=== PATIENT | female | born 1990 | race Caucasian/White ===

== ENCOUNTER → 2022-02-20 | Outpatient (CLI) | payer BC ==
[~2022-02-20] MED LIST: COLA100C5 PO; IBUP-1114 PO; IRON27TA2 PO; MAPA500T2 PO; PRENTAB9 PO
[2022-02-20 16:10] LABS: HEMATOCRIT 37.1 % (36.0-47.0); HEMOGLOBIN 13.1 g/dl (12.0-15.5); MEAN CORPUSCULAR HEMOGLOBIN 30.5 pg (27.0-33.0); MEAN CORPUSCULAR HGB CONC 35.3 g/dl (32.0-36.5); MEAN CORPUSCULAR VOLUME 86.5 fl (80.0-96.0); PLATELET COUNT, AUTOMATED 254 10^3/uL (150-450); RED BLOOD COUNT 4.29 10^6/uL (4.00-5.40); WHITE BLOOD COUNT 6.9 10^3/uL (4.0-10.0)
[2022-02-20 16:41] LABS: CREATININE,RANDOM URINE 76.8 MG/DL; TOTAL PROTEIN,RANDOM URINE 12.3 MG/DL (0.0-12.0)
[2022-02-20 16:42] LABS: ALT/SGPT 21 U/L (12-78); BILIRUBIN,TOTAL 0.4 MG/DL (0.2-1.0); CREATININE FOR GFR 0.74 MG/DL (0.55-1.30); GLOMERULAR FILTRATION RATE > 60.0 (>60); LDH LACTATE DEHYDROGENASE 178 U/L (84-246); URIC ACID 3.6 MG/DL (2.6-6.0)
[2022-02-20 17:34] LABS: GC DNA AMPLIFICATION NEGATIVE (NEGATIVE)
[2022-02-20 18:26] LABS: HEPATITIS C VIRUS ABY INDEX < 0.0 INDEX (<0.8)
[2022-02-20 18:27] LABS: HIV 1&2 SCREEN CENTAUR NEGATIVE (NEGATIVE)
== END ==
LOC: M PLALAB 13:34
PROVIDERS: ATTEND Advanced Practice Midwife
DX: Z36.89 Encounter for other specified antenatal screening (principal)

== ENCOUNTER → 2022-04-08 | Outpatient (CLI) | payer BC | LOC: M WHC 14:26 | PROVIDERS: ATTEND Specialist | DX: Z34.82 Encounter for supervision of other normal pregnancy, second trimester (principal); Z3A.18 18 weeks gestation of pregnancy ==

== ENCOUNTER → 2022-04-22 | Outpatient (REF) | payer BC | LOC: M SFHCWAGY 17:13 | PROVIDERS: ATTEND Obstetrics & Gynecology | DX: Z34.92 Encounter for supervision of normal pregnancy, unspecified, second trimester (principal) ==

== ENCOUNTER → 2022-06-29 | Outpatient (CLI) | payer BC ==
[2022-06-29 15:55] LABS: HEMATOCRIT 30.7 % (36.0-47.0); HEMOGLOBIN 10.6 g/dl (12.0-15.5); MEAN CORPUSCULAR HEMOGLOBIN 31.8 pg (27.0-33.0); MEAN CORPUSCULAR HGB CONC 34.5 g/dl (32.0-36.5); MEAN CORPUSCULAR VOLUME 92.2 fl (80.0-96.0); PLATELET COUNT, AUTOMATED 238 10^3/uL (150-450); RED BLOOD COUNT 3.33 10^6/uL (4.00-5.40); WHITE BLOOD COUNT 8.3 10^3/uL (4.0-10.0)
[2022-06-29 17:41] LABS: GC DNA AMPLIFICATION NEGATIVE (NEGATIVE)
== END ==
LOC: M PLALAB 11:25
PROVIDERS: ATTEND Specialist
DX: Z34.82 Encounter for supervision of other normal pregnancy, second trimester (principal)

== ENCOUNTER → 2022-06-29 | Outpatient (CLI) | payer BC | LOC: M WHC 10:36 | PROVIDERS: ATTEND Obstetrics & Gynecology | DX: Z36.2 Encounter for other antenatal screening follow-up (principal); Z3A.30 30 weeks gestation of pregnancy ==

== ENCOUNTER → 2022-07-24 | Outpatient (CLI) | payer BC ==
[2022-07-24 14:01] LABS: HEMATOCRIT 32.8 % (36.0-47.0); HEMOGLOBIN 11.4 g/dl (12.0-15.5); MEAN CORPUSCULAR HEMOGLOBIN 31.6 pg (27.0-33.0); MEAN CORPUSCULAR HGB CONC 34.8 g/dl (32.0-36.5); MEAN CORPUSCULAR VOLUME 90.9 fl (80.0-96.0); PLATELET COUNT, AUTOMATED 239 10^3/uL (150-450); RED BLOOD COUNT 3.61 10^6/uL (4.00-5.40); WHITE BLOOD COUNT 9.1 10^3/uL (4.0-10.0)
[2022-07-24 14:31] LABS: URIC ACID 4.6 MG/DL (3.1-7.8)
[2022-07-24 14:33] LABS: LDH LACTATE DEHYDROGENASE 186 U/L (120-246)
[2022-07-24 14:35] LABS: ALT/SGPT 13 U/L (7.0-40); AST/SGOT 17 U/L (<34); BILIRUBIN,TOTAL 0.4 MG/DL (0.3-1.2); CREATININE FOR GFR 0.56 MG/DL (0.55-1.30); GLOMERULAR FILTRATION RATE > 60.0 (>60)
[2022-07-24 14:37] LABS: CREATININE,RANDOM URINE 44.1 MG/DL
== END ==
LOC: M PLALAB 12:15
PROVIDERS: ATTEND Advanced Practice Midwife
DX: O10.013 Pre-existing essential hypertension complicating pregnancy, third trimester (principal)

== ENCOUNTER → 2022-08-05 | Outpatient (REF) | payer BC | LOC: M SFHCWAGY 14:50 | PROVIDERS: ATTEND Specialist | DX: Z34.83 Encounter for supervision of other normal pregnancy, third trimester (principal) ==

== ENCOUNTER 2022-08-12 14:58 | Inpatient (IN) | payer BC ==
[~2022-08-12] VITALS: Ht 167.6 cm; Wt 88.5 kg
[2022-08-12] VITALS (18 sets, daily range): BP systolic 129–174; BP diastolic 70–107
[2022-08-12] MEDS ORDERED: ASPI81CH33 PO (15:26)
[2022-08-12 16:36] LABS: HEMATOCRIT 33.3 % (36.0-47.0); HEMOGLOBIN 11.6 g/dl (12.0-15.5); MEAN CORPUSCULAR HEMOGLOBIN 31.4 pg (27.0-33.0); MEAN CORPUSCULAR HGB CONC 34.8 g/dl (32.0-36.5); MEAN CORPUSCULAR VOLUME 90.2 fl (80.0-96.0); PLATELET COUNT, AUTOMATED 217 10^3/uL (150-450); RED BLOOD COUNT 3.69 10^6/uL (4.00-5.40); WHITE BLOOD COUNT 10.2 10^3/uL (4.0-10.0)
[2022-08-12 16:49] LABS: TOTAL PROTEIN,RANDOM URINE 7.3 MG/DL (0.0-14.0)
[2022-08-12] MEDS ORDERED: PENICILLIN G POTASSIUM 5 MU IV 5 MU in D5W MINI-BAG PLUS 100 ML IV STA (16:49)
[2022-08-12] MEDS ORDERED: OXYTOCIN INJ 10UNITS/ML 1ML VIAL IM PRN (16:50)
[2022-08-12] MEDS ORDERED: TRANEXAMIC ACID INJection 1,000 MG in NS 100 ML IV PRN (16:50)
[2022-08-12] MEDS ORDERED: CARBOPROST TROMETHAMINE 250 MCG/ML AMP IM PRN (16:50)
[2022-08-12] MEDS ORDERED: LIDOCAINE 1% MDV 20ML VIAL INFIL PRN (16:50)
[2022-08-12] MEDS ORDERED: OXYTOCIN DRIP 30 UNITS in IV 1 EA IV PRN ×4 (16:50)
[2022-08-12 16:54] LABS: CREATININE,RANDOM URINE 34.7 MG/DL
[2022-08-12] MEDS ORDERED: miSOPROStol 50MCG 1/2 TABLET PO SCH (17:00)
[2022-08-12 17:11] LABS: URIC ACID 4.9 MG/DL (3.1-7.8)
[2022-08-12 17:13] LABS: LDH LACTATE DEHYDROGENASE 214 U/L (120-246)
[2022-08-12 17:15] LABS: ALT/SGPT 13 U/L (7.0-40); AST/SGOT 17 U/L (<34); BILIRUBIN,TOTAL 0.4 MG/DL (0.3-1.2); CREATININE FOR GFR 0.56 MG/DL (0.55-1.30); GLOMERULAR FILTRATION RATE > 60.0 (>60)
[2022-08-12] MEDS ORDERED: OXYTOCIN DRIP 30 UNITS in IV 1 EA IV SCH (21:30)
[2022-08-12] MEDS: LR 1,000 ML IV SCH (21:43)
[2022-08-12] MEDS: PEN G POT 3,000,000 UNIT/50 ML 3,000,000 UNIT in IV 1 EA IV SCH (21:43)
[2022-08-13] VITALS (25 sets, daily range): BP systolic 119–161; BP diastolic 58–98
[2022-08-13] MEDS: PEN G POT 3,000,000 UNIT/50 ML 3,000,000 UNIT in IV 1 EA IV SCH ×2 (01:40→05:39)
[2022-08-13] MEDS ORDERED: PROMETHAZINE 25MG/ML 1ML VIAL IM ONE (01:55)
[2022-08-13] MEDS ORDERED: BUTORPHANOL 2 MG/ML 1ML VIAL IV ONE (01:55)
[2022-08-13] MEDS ORDERED: PROMETHAZINE 25MG/ML 1ML VIAL IV ONE (03:40)
[2022-08-13] MEDS: LR 1,000 ML IV SCH ×2 (04:33→13:30)
[2022-08-13] MEDS ORDERED: ACETAMINOPHEN TAB 650MG DOSE (2X325MG) PO PRN (08:35)
[2022-08-13] MEDS ORDERED: DIBUCAINE 1% OINTMENT 30GM TOP PRN (08:35)
[2022-08-13] MEDS ORDERED: ANUSOL HC CREAM 30GM TOP PRN (08:35)
[2022-08-13] MEDS ORDERED: IBUPROFEN 600MG TAB PO PRN (08:35)
[2022-08-13] MEDS ORDERED: RHOGAM 300MCG (1500IU) INJ IM SCH (08:35)
[2022-08-13] MEDS ORDERED: DOCUSATE SODIUM 100MG CAPSULE PO PRN (08:35)
[2022-08-13] MEDS ORDERED: METHYLERGONOVINE MALEATE 0.2 MG TAB PO PRN (08:35)
[2022-08-13] MEDS ORDERED: MOM 30ML SUSPENSION UDC PO PRN (08:35)
[2022-08-13] MEDS ORDERED: ACETAMINOPHEN 500 MG TAB PO PRN (08:35)
[2022-08-13] MEDS ORDERED: IBUPROFEN 800 MG TAB PO PRN (08:35)
[2022-08-13] MEDS ORDERED: OXYTOCIN DRIP 30 UNITS in IV 1 EA IV SCH (08:35)
[2022-08-13] MEDS: PRENATAL VITAMINS CHEWABLE TABLET PO SCH (11:30)
[2022-08-14 02:00] VITALS: BP 118/58
[2022-08-14 06:00] VITALS: BP 138/79
[2022-08-14] MEDS: PRENATAL VITAMINS CHEWABLE TABLET PO SCH (09:20)
[2022-08-15] MEDS ORDERED: MEASLES,MUMPS,RUBELLA VACCINE INJ (MMR-II) SC.IMMUN ONE (09:00)
== END 2022-08-14 11:10 | disposition home or self-care (01) | DRG 560 ==
LOC: M LDO 14:58 → M LDI 16:48 → M OBS 08-13 10:30
PROVIDERS: ADMIT Advanced Practice Midwife; ATTEND Obstetrics & Gynecology
PROC: 3E0P7GC Introduction of Other Therapeutic Substance into Female Reproductive, Via Natural or Artificial Opening (ICD-10-PCS; 2022-08-12)
PROC: 10E0XZZ Delivery of Products of Conception, External Approach (ICD-10-PCS; principal; 2022-08-13)
DX: O11.4 Pre-existing hypertension with pre-eclampsia, complicating childbirth (principal); O62.3 Precipitate labor; Z3A.37 37 weeks gestation of pregnancy; Z37.0 Single live birth

== ENCOUNTER 2023-10-21 06:15 | Day surgery (SDC) | payer BC ==
[~2023-10-21] VITALS: Ht 167.6 cm; Wt 76.2 kg
[~2023-10-21 06:15] MED LIST changes: +ASPI81CH33 PO; +DROS4TAB PO
[2023-10-21] MEDS ORDERED: LR 1,000 ML IV SCH ×2 (06:50→08:45)
[2023-10-21 06:52] LABS: HEMATOCRIT 37.5 % (36.0-47.0); MEAN CORPUSCULAR HEMOGLOBIN 29.6 pg (27.0-33.0); MEAN CORPUSCULAR HGB CONC 34.7 g/dl (32.0-36.5); MEAN CORPUSCULAR VOLUME 85.4 fl (80.0-96.0); PLATELET COUNT, AUTOMATED 291 10^3/uL (150-450); RED BLOOD COUNT 4.39 10^6/uL (4.00-5.40); WHITE BLOOD COUNT 5.2 10^3/uL (4.0-10.0)
[2023-10-21] MEDS ORDERED: ONDANSETRON 4MG 2ML VIAL As Ordered ONE (07:20)
[2023-10-21] MEDS ORDERED: LIDOCAINE 2% 100MG/5ML SDV (FOR ANES.) As Ordered ONE (07:20)
[2023-10-21] MEDS ORDERED: fentaNYL 100 MCG/2 ML INJECTION As Ordered ONE (07:20)
[2023-10-21] MEDS ORDERED: propofoL 200 MG/20 ML VIAL As Ordered ONE (07:20)
[2023-10-21] MEDS ORDERED: ROCURONIUM BROMIDE 50MG/5ML VIAL As Ordered ONE (07:20)
[2023-10-21] MEDS ORDERED: MIDAZOLAM INJ 2MG/2ML VIAL As Ordered ONE (07:20)
[2023-10-21] MEDS ORDERED: KETOROLAC 60MG 2ML VIAL As Ordered ONE (07:21)
[2023-10-21] MEDS ORDERED: SUGAMMADEX SODIUM 500 MG/5 ML VIAL (BRIDION) As Ordered ONE (07:21)
[2023-10-21] MEDS ORDERED: dexmedeTOMIDine (4MCG/ML)200MCG/50ML BTL (PRECEDEX) As Ordered ONE (07:25)
[2023-10-21] MEDS ORDERED: METOCLOPRAMIDE INJ 10MG/2ML VIAL As Ordered ONE (07:32)
[2023-10-21] MEDS ORDERED: ACETAMINOPHEN 1000MG 100ML IV BAG As Ordered ONE (07:51)
[2023-10-21] MEDS ORDERED: LACRILUBE (AKWA TEARS) OPHTH OINT 3.5GM As Ordered ONE (08:12)
[2023-10-21] MEDS ORDERED: fentaNYL 100 MCG/2 ML INJECTION IV PRN (08:45)
[2023-10-21] MEDS: HYDROMORPHONE HCL 0.5 MG/ 0.5 ML SYRINGE IV PRN (08:54)
[2023-10-21] MEDS: oxyCODONE 5MG TAB PO PRN (08:54)
[2023-10-21] MEDS: ONDANSETRON 4MG 2ML VIAL IV PRN (08:54)
[2023-10-21 09:40] VITALS: BP 117/59; TEMP 96.7; O2SAT 100
== END 2023-10-21 10:10 | disposition home or self-care (01) ==
LOC: M SDC 06:15
PROVIDERS: ATTEND Obstetrics & Gynecology
DX: Z30.2 Encounter for sterilization (principal); J45.909 Unspecified asthma, uncomplicated; D64.9 Anemia, unspecified; Z79.899 Other long term (current) drug therapy
CPT/HCPCS: 36415; 58661; 81025; 85027; 86850; 86900; 86901; 88302; J0131; J0665; J1100; J1170; J1885; J2250; J2405; J2765; J3010